=== PATIENT | male | born 1950 | race Caucasian/White ===

== ENCOUNTER 2019-01-08 09:47 | Observation (INO) | payer MEDICARE, OTHER ==
[2019-01-08] MEDS ORDERED: Sodium Chloride 0.9% 2.5 ML Syringe FLUSH PRN (09:49)
[2019-01-08] MEDS ORDERED: Ondansetron 4 MG/2 ML SDV IVPUSH ONE (09:49)
[2019-01-08] MEDS ORDERED: Morphine 2 MG/ML Syringe IVPUSH ONE (09:49)
[2019-01-08] MEDS ORDERED: Sodium Chloride 0.9% 10 ML Syringe FLUSH PRN (09:49)
[2019-01-08] MEDS ORDERED: Aspirin 81 MG Tab.Chew PO ONE (09:49)
[2019-01-08] MEDS ORDERED: Nitroglycerin 0.4 MG Tab.SL ONE (09:50)
[2019-01-08] MEDS ORDERED: Aspirin 81 MG Tab.Chew ONE (09:51)
[2019-01-08] MEDS: Nitroglycerin 0.4 MG Tab.SL SL PRN ×3 (09:58→10:11)
[2019-01-08] MEDS ORDERED: Sodium Chloride 0.9% 1,000 ML IV SCH (10:00)
[2019-01-08 10:44] LABS: BLOOD UREA NITROGEN,BUN 11 mg/dL (7.0-18.0); CARBON DIOXIDE,CO2 24.3 mmol/L (21.0-32.0); CHLORIDE,CL 104 mmol/L (98-107); GLUCOSE RANDOM 136 mg/dL (74-106); SODIUM,NA 142 mmol/L (136-148)
--- NOTE | 2019-01-08 11:02 | CR ---
EXAM DATE: 01/08/19 PATIENT'S AGE: 68 Chest: Portable view of the chest was obtained. Comparison: No prior chest x-ray is available. Heart size is normal. Double density is seen overlying the left aortic arch. Lungs are clear with no acute parenchymal change. Bony structures are grossly intact. Impression: 1. Double density overlying the left aortic arch. This may represent tortuosity of thoracic aorta but difficult to exclude aortic aneurysm or adenopathy. Contrast-enhanced chest CT recommended to further evaluate. 2. Nothing acute is appreciated on portable chest x-ray. Diagnostic code #3 Report Signed by Proxy. JAMES
--- NOTE | 2019-01-08 11:59 | EDM.PDOC ---
ED HPI GENERAL MEDICAL PROBLEM - General Chief Complaint: Chest Pain Stated Complaint: CHEST PAINS Time Seen by Provider: 01/08/19 09:48 - History of Present Illness INITIAL COMMENTS - FREE TEXT/NARRATIVE: HISTORY AND PHYSICAL: History of present illness: Patient 68-year-old male history of hypertension presents with a left-sided chest pain he describes as a tightness and seems to be related to exertion sit been somewhat inconsistent and has been noted over last several days has been no associated shortness of breath nausea vomiting palpitations or other concern Review of systems: As per history of present illness and below otherwise all systems reviewed and negative. Past medical history: As per history of present illness and as reviewed below otherwise noncontributory. Surgical history: As per history of present illness and as reviewed below otherwise noncontributory. Social history: No reported history of drug or alcohol abuse. Family history: As per history of present illness and as reviewed below otherwise noncontributory. Physical exam: HEENT: Atraumatic, normocephalic, pupils reactive, negative for conjunctival pallor or scleral icterus, mucous membranes moist, throat clear, neck supple, nontender, trachea midline. Lungs: Clear to auscultation, breath sounds equal bilaterally, chest nontender. Heart: S1S2, regular, negative for clicks, rubs, or JVD. Abdomen: Soft, nondistended, nontender. Negative for masses or hepatosplenomegaly. Negative for costovertebral tenderness. Pelvis: Stable nontender. Genitourinary: Deferred. Rectal: Deferred. Extremities: Atraumatic, negative for cords or calf pain. Neurovascular unremarkable. Neuro: Awake, alert, oriented. Cranial nerves II through XII unremarkable. Cerebellum unremarkable. Motor and sensory unremarkable throughout. Exam nonfocal. Diagnostics: CBC CMP troponin PT/INR d-dimer chest x-ray EKG Therapeutics: Aspirin 324 mg IV nitroglycerin sublingual IV O2 monitor morphine sulfate 2 mg IV Zofran 4 mg IV Impression: #1 chest pain #2 history of hypertension Definitive disposition and diagnosis as appropriate pending reevaluation and review of above. Left Chest Pain Score (Numeric/FACES): 0 - Related Data Allergies Allergy/AdvReac Type Severity Reaction Status Date / Time No Known Allergies Allergy Verified 01/08/19 09:54 Home Meds: Home Meds Arthritis Medication 01/08/19 [History] Pantoprazole Sodium [Protonix] 01/08/19 [History] amLODIPine Besylate [Norvasc] 01/08/19 [History] Past Medical History Cardiovascular History: Reports: Hypertension Gastrointestinal History: Reports: GERD Musculoskeletal History: Reports: Arthritis - Infectious Disease History Infectious Disease History: Reports: Chicken Pox Social & Family History - Family History Family Medical History: Noncontributory - Tobacco Use Smoking Status *Q: Never Smoker - Recreational Drug Use Recreational Drug Use: No ED ROS GENERAL - Review of Systems Review Of Systems: Comprehensive ROS is negative, except as noted in HPI. ED EXAM, GENERAL - Physical Exam Exam: See Below (The dictation) Course - Vital Signs Last Recorded V/S: Last Vital Signs Temp 35.8 C 01/08/19 09:51 Pulse 73 01/08/19 11:01 Resp 12 01/08/19 11:01 BP 122/63 01/08/19 11:01 Pulse Ox 97 01/08/19 11:01 - Orders/Labs/Meds Orders: Active Orders 24 hr Category Date Time Status Cardiac Monitoring [RC] . DIRECTED Care 01/08/19 09:48 Active EKG Documentation Completion [RC] STAT Care 01/08/19 09:48 Active Oxygen Therapy, ED [RC] ASDIRECTED Care 01/08/19 09:48 Active Pulse Oximetry [RC] ASDIRECTED Care 01/08/19 09:48 Active Sodium Chloride 0.9% [Normal Saline] 1,000 ml Med 01/08/19 10:00 Active IV STAT Sodium Chloride 0.9% [Saline Flush] Med 01/08/19 09:49 Active 10 ml FLUSH ASDIRECTED PRN Sodium Chloride 0.9% [Saline Flush] Med 01/08/19 09:49 Active 2.5 ml FLUSH ASDIRECTED PRN Saline Lock Insert [OM.PC] Stat Oth 01/08/19 09:48 Ordered Medication Orders Sodium Chloride (Normal Saline) 1,000 mls @ 125 mls/hr IV STAT RUSSELL Last Admin: 01/08/19 10:05 Dose: 125 mls/hr Sodium Chloride (Saline Flush) 10 ml FLUSH ASDIRECTED PRN PRN Reason: Keep Vein Open Last Admin: 01/08/19 10:04 Dose: 10 ml Sodium Chloride (Saline Flush) 2.5 ml FLUSH ASDIRECTED PRN PRN Reason: Keep Vein Open Last Admin: 01/08/19 10:04 Dose: 2.5 ml Labs: Laboratory Tests 01/08/19 01/08/19 01/08/19 Range/Units 09:55 09:55 09:55 WBC 8.59 (4.0-11.0) K/uL RBC 5.10 (4.50-5.90) M/uL Hgb 16.1 (13.0-17.0) g/dL Hct 46.2 (38.0-50.0) % MCV 90.6 (80.0-98.0) fL MCH 31.6 (27.0-32.0) pg MCHC 34.8 (31.0-37.0) g/dL RDW Std Deviation 42.4 (28.0-62.0) fl RDW Coeff of Evon 13 (11.0-15.0) % Plt Count 238 (150-400) K/uL MPV 9.40 (7.40-12.00) fL Neut % (Auto) 59.4 (48.0-80.0) % Lymph % (Auto) 28.4 (16.0-40.0) % [place] % (Auto) 8.6 (0.0-15.0) % Eos % (Auto) 3.1 (0.0-7.0) % Baso % (Auto) 0.5 (0.0-1.5) % Neut # (Auto) 5.1 (1.4-5.7) K/uL Lymph # (Auto) 2.4 (0.6-2.4) K/uL [place] # (Auto) 0.7 (0.0-0.8) K/uL Eos # (Auto) 0.3 (0.0-0.7) K/uL Baso # (Auto) 0.0 (0.0-0.1) K/uL Nucleated RBC % 0.0 /100WBC Nucleated RBCs # 0 K/uL INR 0.95 D-Dimer, Quantitative 0.31 (0.0-0.50) mg/L FEU Sodium 142 (136-148) mmol/L Potassium 3.0 L (3.5-5.1) mmol/L Chloride 104 (98-107) mmol/L Carbon Dioxide 24.3 (21.0-32.0) mmol/L BUN 11 (7.0-18.0) mg/dL Creatinine 1.0 (0.8-1.3) mg/dL Est Cr Clr Drug Dosing 73.00 mL/min Estimated GFR (MDRD) > 60.0 ml/min Glucose 136 H (74-106) mg/dL Calcium 9.0 (8.5-10.1) mg/dL Total Bilirubin 0.5 (0.2-1.0) mg/dL AST 17 (15-37) IU/L ALT 24 (14-63) IU/L Alkaline Phosphatase 110 (46-116) U/L Troponin I < 0.050 (0.000-0.056) ng/mL Total Protein 7.7 (6.4-8.2) g/dL Albumin 4.3 (3.4-5.0) g/dL Globulin 3.4 (2.6-4.0) g/dL Albumin/Globulin Ratio 1.3 (0.9-1.6) Meds: Medications Generic Name Dose Route Start Last Admin Trade Name Freq PRN Reason Stop Dose Admin Sodium Chloride 1,000 mls @ 125 mls/hr 01/08/19 10:00 01/08/19 10:05 Normal Saline IV 125 mls/hr STAT RUSSELL Administration Sodium Chloride 10 ml 01/08/19 09:49 01/08/19 10:04 Saline Flush FLUSH 10 ml ASDIRECTED PRN Administration Keep Vein Open Sodium Chloride 2.5 ml 01/08/19 09:49 01/08/19 10:04 Saline Flush FLUSH 2.5 ml ASDIRECTED PRN Administration Keep Vein Open Discontinued Medications Generic Name Dose Route Start Last Admin Trade Name Freq PRN Reason Stop Dose Admin Aspirin 324 mg 01/08/19 09:49 01/08/19 09:59 Aspirin PO 01/08/19 09:50 324 mg ONETIME ONE Administration Aspirin Confirm 01/08/19 09:51 01/08/19 10:07 Aspirin Administered 01/08/19 09:52 Not Given Dose 324 mg .ROUTE .STK-MED ONE Morphine Sulfate 2 mg 01/08/19 09:49 01/08/19 10:25 Morphine IVPUSH 01/08/19 09:50 2 mg ONETIME ONE Administration Nitroglycerin 0.4 mg 01/08/19 09:49 01/08/19 10:11 Nitrostat SL 0.4 mg Q5M PRN Administration Chest Pain Nitroglycerin Confirm 01/08/19 09:50 01/08/19 10:07 Nitrostat Administered 01/08/19 09:51 Not Given Dose 0.4 mg .ROUTE .STK-MED ONE Ondansetron HCl 4 mg 01/08/19 09:49 01/08/19 10:07 Zofran IVPUSH 01/08/19 09:50 4 mg ONETIME ONE Administration Departure - Departure Time of Disposition: 11:58 Disposition: Refer to Observation Condition: Good Clinical Impression: Chest pain, H/O: hypertension - Discharge Information Referrals: PCP,Unobtain [Primary Care Provider] - - My Orders Last 24 Hours: My Active Orders 01/08/19 09:48 Cardiac Monitoring [RC] . DIRECTED EKG Documentation Completion [RC] STAT Oxygen Therapy, ED [RC] ASDIRECTED Pulse Oximetry [RC] ASDIRECTED Saline Lock Insert [OM.PC] Stat 01/08/19 09:49 Sodium Chloride 0.9% [Saline Flush] 10 ml FLUSH ASDIRECTED PRN Sodium Chloride 0.9% [Saline Flush] 2.5 ml FLUSH ASDIRECTED PRN 01/08/19 10:00 Sodium Chloride 0.9% [Normal Saline] 1,000 ml IV STAT - Assessment/Plan Last 24 Hours: My Active Orders 01/08/19 09:48 Cardiac Monitoring [RC] . DIRECTED EKG Documentation Completion [RC] STAT Oxygen Therapy, ED [RC] ASDIRECTED Pulse Oximetry [RC] ASDIRECTED Saline Lock Insert [OM.PC] Stat 01/08/19 09:49 Sodium Chloride 0.9% [Saline Flush] 10 ml FLUSH ASDIRECTED PRN Sodium Chloride 0.9% [Saline Flush] 2.5 ml FLUSH ASDIRECTED PRN 01/08/19 10:00 Sodium Chloride 0.9% [Normal Saline] 1,000 ml IV STAT
[2019-01-08] MEDS ORDERED: Morphine 2 MG/ML Syringe IVPUSH PRN (12:11)
[2019-01-08] MEDS ORDERED: Ondansetron 4 MG/2 ML SDV IVPUSH PRN (12:11)
[2019-01-08] MEDS ORDERED: Acetaminophen 325 MG Tab PO PRN (12:11)
[2019-01-08] MEDS ORDERED: Potassium Chloride 20 MEQ Tab.ER PO ONE (12:55)
[2019-01-08 13:00] LABS: HEMOGLOBIN A1C 5.6 % (4.5-6.2)
[2019-01-08] MEDS ORDERED: Heparin Sodium 5,000 Units/ML Vial IVPUSH ONE (13:47)
[2019-01-08] MEDS ORDERED: Heparin Sod,Pork In 0.45% Nacl 25,000 UNIT/500 ML IV.SOLN IV SCH (14:00)
--- NOTE | 2019-01-08 14:10 | PCM.HP.2 ---
H&P History of Present Illness - General Date of Service: 01/08/19 Admit Problem/Dx: Admission Diagnosis/Problem Admission Diagnosis/Problem Chest pain Source of Information: Patient History Limitations: Reports: No Limitations - History of Present Illness Initial Comments - Free Text/Narative: This 68 year old male with pmh of HTN and GERD presented to the ED this morning with complaints of L sided chest pain. he reports this pain has been intermittent over the last several days with exertion, but today it occurred at rest. He was sitting in his truck talking to someone on the phone and the pain started. He came to the ED received Nitro x 3 and ASA. He denies ever having MA in the past. Had a stress test many years ago which was normal. He denies associated symptoms with the chest pain. he reports the pain continues with mid heaviness in his chest. He denies tobacco use no recreational drug use and no alcohol use. No fmaily history of MA or CAD that he is aware of. In the ED, CBC WNL. BUN 11 Cr 1.0. Troponin negative. Borderline ST elevation noted in EKG. Morphine, ASA, and Nitro x 3 given in ED. CXR negative, did mention tortuosity to aortic arch, recommended possible CT to rule out aneurysm. D Dimer negative. Left Chest Pain Score (Numeric/FACES): 0 - Related Data Allergies/Adverse Reactions: Allergies Allergy/AdvReac Type Severity Reaction Status Date / Time No Known Allergies Allergy Verified 01/08/19 13:03 Home Medications: Home Meds Celecoxib [CeleBREX] 50 mg PO BEDTIME 01/08/19 [History] Pantoprazole Sodium [Protonix] 40 mg PO BEDTIME 01/08/19 [History] amLODIPine Besylate [Norvasc] 10 mg PO BEDTIME 01/08/19 [History] Past Medical History HEENT History: Reports: Impaired Vision, Other (See Below) Other HEENT History: wears reading glasses Cardiovascular History: Reports: Hypertension Respiratory History: Reports: None. Denies: COPD, PE, SOB Gastrointestinal History: Reports: GERD Musculoskeletal History: Reports: Arthritis - Infectious Disease History Infectious Disease History: Reports: Chicken Pox - Past Surgical History Musculoskeletal Surgical History: Reports: Arthroscopic Knee Social & Family History - Family History Family Medical History: Noncontributory - Tobacco Use Smoking Status *Q: Never Smoker - Caffeine Use Caffeine Use: Reports: None - Recreational Drug Use Recreational Drug Use: No H&P Review of Systems - Review of Systems: Review Of Systems: See Below General: Reports: No Symptoms. Denies: Fever, Chills, Malaise HEENT: Reports: No Symptoms. Denies: Sinus Congestion Pulmonary: Denies: Shortness of Breath, Cough, Sputum Cardiovascular: Reports: Chest Pain (heaviness to L chest) Gastrointestinal: Reports: No Symptoms. Denies: Abdominal Pain, Nausea, Vomiting Genitourinary: Reports: No Symptoms. Denies: Dysuria, Frequency, Burning Skin: Reports: No Symptoms Psychiatric: Reports: No Symptoms Neurological: Reports: No Symptoms Hematologic/Lymphatic: Reports: No Symptoms Immunologic: Reports: No Symptoms Exam - Exam Exam: See Below - Vital Signs Vital Signs: Last Vital Signs Temp 97.6 F 01/08/19 12:29 Pulse 68 01/08/19 12:29 Resp 14 01/08/19 12:29 BP 145/92 H 01/08/19 12:29 Pulse Ox 97 01/08/19 12:29 Weight: 99.79 kg - Exam General: Alert, Oriented Neck: Supple, Trachea Midline Lungs: Clear to Auscultation, Normal Respiratory Effort Cardiovascular: Regular Rate, Regular Rhythm GI/Abdominal Exam: Normal Bowel Sounds, Soft, Non-Tender Back Exam: Normal Inspection Extremities: Normal Inspection, Normal Range of Motion, Non-Tender Neuro Extensive - Mental Status: Alert, Oriented x3 Neuro Extensive - Motor, Sensory, Reflexes: CN II-XII Intact Psychiatric: Alert, Normal Affect, Normal Mood - Patient Data Lab Results Last 24 hrs: Laboratory Results - last 24 hr 01/08/19 01/08/19 01/08/19 Range/Units 09:55 09:55 09:55 WBC 8.59 (4.0-11.0) K/uL RBC 5.10 (4.50-5.90) M/uL Hgb 16.1 (13.0-17.0) g/dL Hct 46.2 (38.0-50.0) % MCV 90.6 (80.0-98.0) fL MCH 31.6 (27.0-32.0) pg MCHC 34.8 (31.0-37.0) g/dL RDW Std Deviation 42.4 (28.0-62.0) fl RDW Coeff of Evon 13 (11.0-15.0) % Plt Count 238 (150-400) K/uL MPV 9.40 (7.40-12.00) fL Neut % (Auto) 59.4 (48.0-80.0) % Lymph % (Auto) 28.4 (16.0-40.0) % [place] % (Auto) 8.6 (0.0-15.0) % Eos % (Auto) 3.1 (0.0-7.0) % Baso % (Auto) 0.5 (0.0-1.5) % Neut # (Auto) 5.1 (1.4-5.7) K/uL Lymph # (Auto) 2.4 (0.6-2.4) K/uL [place] # (Auto) 0.7 (0.0-0.8) K/uL Eos # (Auto) 0.3 (0.0-0.7) K/uL Baso # (Auto) 0.0 (0.0-0.1) K/uL Nucleated RBC % 0.0 /100WBC Nucleated RBCs # 0 K/uL INR 0.95 D-Dimer, Quantitative 0.31 (0.0-0.50) mg/L FEU Sodium 142 (136-148) mmol/L Potassium 3.0 L (3.5-5.1) mmol/L Chloride 104 (98-107) mmol/L Carbon Dioxide 24.3 (21.0-32.0) mmol/L BUN 11 (7.0-18.0) mg/dL Creatinine 1.0 (0.8-1.3) mg/dL Est Cr Clr Drug Dosing 73.00 mL/min Estimated GFR (MDRD) > 60.0 ml/min Glucose 136 H (74-106) mg/dL Hemoglobin A1c (4.5-6.2) % Calcium 9.0 (8.5-10.1) mg/dL Total Bilirubin 0.5 (0.2-1.0) mg/dL AST 17 (15-37) IU/L ALT 24 (14-63) IU/L Alkaline Phosphatase 110 (46-116) U/L Troponin I < 0.050 (0.000-0.056) ng/mL Total Protein 7.7 (6.4-8.2) g/dL Albumin 4.3 (3.4-5.0) g/dL Globulin 3.4 (2.6-4.0) g/dL Albumin/Globulin Ratio 1.3 (0.9-1.6) Triglycerides (0-200) mg/dL Cholesterol (50-200) mg/dL LDL Cholesterol, Calc (60-180) mg/dL VLDL Cholesterol (5-55) mg/dL HDL Cholesterol (40-60) mg/dL Cholesterol/HDL Ratio (3.3-6.0) TSH 3rd Generation (0.36-3.74) uIU/mL 01/08/19 01/08/19 01/08/19 Range/Units 09:55 09:55 12:55 WBC (4.0-11.0) K/uL RBC (4.50-5.90) M/uL Hgb (13.0-17.0) g/dL Hct (38.0-50.0) % MCV (80.0-98.0) fL MCH (27.0-32.0) pg MCHC (31.0-37.0) g/dL RDW Std Deviation (28.0-62.0) fl RDW Coeff of Evon (11.0-15.0) % Plt Count (150-400) K/uL MPV (7.40-12.00) fL Neut % (Auto) (48.0-80.0) % Lymph % (Auto) (16.0-40.0) % [place] % (Auto) (0.0-15.0) % Eos % (Auto) (0.0-7.0) % Baso % (Auto) (0.0-1.5) % Neut # (Auto) (1.4-5.7) K/uL Lymph # (Auto) (0.6-2.4) K/uL [place] # (Auto) (0.0-0.8) K/uL Eos # (Auto) (0.0-0.7) K/uL Baso # (Auto) (0.0-0.1) K/uL Nucleated RBC % /100WBC Nucleated RBCs # K/uL INR D-Dimer, Quantitative (0.0-0.50) mg/L FEU Sodium (136-148) mmol/L Potassium (3.5-5.1) mmol/L Chloride (98-107) mmol/L Carbon Dioxide (21.0-32.0) mmol/L BUN (7.0-18.0) mg/dL Creatinine (0.8-1.3) mg/dL Est Cr Clr Drug Dosing mL/min Estimated GFR (MDRD) ml/min Glucose (74-106) mg/dL Hemoglobin A1c 5.6 (4.5-6.2) % Calcium (8.5-10.1) mg/dL Total Bilirubin (0.2-1.0) mg/dL AST (15-37) IU/L ALT (14-63) IU/L Alkaline Phosphatase (46-116) U/L Troponin I 1.275 H* (0.000-0.056) ng/mL Total Protein (6.4-8.2) g/dL Albumin (3.4-5.0) g/dL Globulin (2.6-4.0) g/dL Albumin/Globulin Ratio (0.9-1.6) Triglycerides 146 (0-200) mg/dL Cholesterol 213 H (50-200) mg/dL LDL Cholesterol, Calc 142 (60-180) mg/dL VLDL Cholesterol 29 (5-55) mg/dL HDL Cholesterol 42 (40-60) mg/dL Cholesterol/HDL Ratio 5.1 (3.3-6.0) TSH 3rd Generation 1.15 (0.36-3.74) uIU/mL Result Diagrams: 01/08/19 09:55 01/08/19 09:55 EKG INTERPRETATION EKG Date: 01/08/19 Rhythm: NSR P-Wave: Present QRS: Normal ST-T: Elevated (borderline) - Problem List (1) STEMI (ST elevation myocardial infarction) SNOMED Code(s): 58081317 ICD Code: I21.3 - ST ELEVATION (STEMI) MYOCARDIAL INFARCTION OF [facility] SITE Status: Acute Current Visit: Yes Problem List Initiated/Reviewed/Updated: Yes Orders Last 24hrs: Active Orders 24 hr Category Date Time Status Patient Status [ADT] Stat ADT 01/08/19 11:59 Active Cardiac Monitoring [RC] . DIRECTED Care 01/08/19 09:48 Active Intake and Output [RC] QSHIFT Care 01/08/19 12:12 Active Oxygen Therapy [RC] PRN Care 01/08/19 12:11 Active Oxygen Therapy, ED [RC] ASDIRECTED Care 01/08/19 09:48 Active Pulse Oximetry [RC] ASDIRECTED Care 01/08/19 09:48 Active Telemetry Monitoring [Cardiac Monitoring] [RC] Q8H Care 01/08/19 12:10 Active Up With Assistance [RC] ASDIRECTED Care 01/08/19 12:11 Active VTE/DVT Education [RC] PER UNIT ROUTINE Care 01/08/19 12:11 Active Vital Signs [RC] Q4H Care 01/08/19 12:11 Active Heart Healthy Diet [DIET] Diet 01/08/19 Lunch Active Ang Chest [CT] Urgent Exams 01/08/19 12:53 Stop Req CTA Abdomen W & W/O Contrast [Ang Abdomen] [CT] Routine Exams 01/08/19 13:16 Ordered PTT,PARTIAL THROMBOPLSTIN TIME [COAG] Stat Lab 01/08/19 13:47 Ordered TROPONIN I [CHEM] Q3H Lab 01/08/19 16:00 Ordered TROPONIN I [CHEM] Q3H Lab 01/08/19 19:00 Ordered Acetaminophen [Tylenol] Med 01/08/19 12:11 Active 650 mg PO Q4H PRN Heparin Sod,Pork In 0.45% Nacl [Heparin-1/2Ns 25,000 Med 01/08/19 14:00 Active Units/500] 25,000 unit in 500 ml IV TITRATE Morphine Med 01/08/19 12:11 Active 2 mg IVPUSH Q2H PRN Ondansetron [Zofran] Med 01/08/19 12:11 Active 4 mg IVPUSH Q4H PRN Sodium Chloride 0.9% [Saline Flush] Med 01/08/19 09:49 Active 10 ml FLUSH ASDIRECTED PRN Sodium Chloride 0.9% [Saline Flush] Med 01/08/19 09:49 Active 2.5 ml FLUSH ASDIRECTED PRN Saline Lock Insert [OM.PC] Stat Oth 01/08/19 09:48 Ordered Resuscitation Status Routine Resus Stat 01/08/19 12:11 Ordered Medication Orders Acetaminophen (Tylenol) 650 mg PO Q4H PRN PRN Reason: Pain (Mild 1-3)/fever Heparin Sodium/Sodium Chloride (Heparin-1/2ns 25,000 Units/500) 25,000 unit in 500 mls @ 23.95 mls/hr IV TITRATE RUSSELL; Protocol Morphine Sulfate (Morphine) 2 mg IVPUSH Q2H PRN PRN Reason: Pain (severe 7-10) Stop: 01/09/19 12:13 Ondansetron HCl (Zofran) 4 mg IVPUSH Q4H PRN PRN Reason: Nausea Sodium Chloride (Saline Flush) 10 ml FLUSH ASDIRECTED PRN PRN Reason: Keep Vein Open Last Admin: 01/08/19 10:04 Dose: 10 ml Sodium Chloride (Saline Flush) 2.5 ml FLUSH ASDIRECTED PRN PRN Reason: Keep Vein Open Last Admin: 01/08/19 10:04 Dose: 2.5 ml Assessment/Plan Comment:: This 68 year old male admitted with chest pain rule out MA Discharge Plan: Second troponin returned elevated at 1.275. Contacted Attending, Dr Cummings. Will transfer patient for further cardiac care. I discussed with patient due to risk of MA and need for urgent evaluation from [facility]. I spoke with Dr Katz, ED MD regarding transfer. He accepted transfer and requested EKG to be faxed to their ED and recommended Heparin gtt to be started. Will start Heparin gtt prior to transfer. Bret is agreeable to treatment and transfer. he will be transferred via helicopter to [facility] for further care. - Mortality Measure Prognosis:: Good
== END 2019-01-08 14:30 ==
LOC: MW.ED 09:47 → MW.MS 12:04
PROVIDERS: ADMIT Student in an Organized Health Care Education/Training Program; ATTEND Student in an Organized Health Care Education/Training Program
DX: R07.89 Other chest pain (principal); I10 Essential (primary) hypertension; K21.9 Gastro-esophageal reflux disease without esophagitis; M19.90 Unspecified osteoarthritis, unspecified site
CPT/HCPCS: 36415; 71045; 80053; 80061; 83036; 84443; 84484; 85025; 85379; 85610; 85730; 93005; A9270; J1644; J2270; J2405; J7040; 96361; 96372; 96374; 96375; 99284; 99285-25; G0378; J7030